=== PATIENT | female | born 1935 | race Two or more races ===

== ENCOUNTER 2017-10-12 23:43 | Emergency (ER) | payer OTHER, MEDICAID ==
[~2017-10-12] VITALS: Ht 162.6 cm; Wt 57.2 kg
[~2017-10-12 23:43] MED LIST: APIX2.5T PO; ATOR40TA52 PO; CAR3125T PO; ENA2.5T PO; MET50T PO; MIRT1TAB PO; OME20T PO
[2017-10-13 00:29] LABS: Basophils # (auto) 0.1 uL; Basophils % (auto) 0.7 % (0.0-2.0); Eosinophils # (auto) 0.2 uL; Eosinophils % (auto) 1.7 % (0.0-7.0); Hematocrit 42.2 % (36.0-46.0); Hemoglobin 13.7 g/dL (12.2-16.2); Lymphocytes # (auto) 2.7 uL; Lymphocytes % (auto) 20.9 % (10.0-50.0); Mean Corpuscular Hemoglobin 29.1 pg (28.0-32.0); Mean Corpuscular Hgb Conc. 32.6 g/dL (32.0-36.0); Mean Corpuscular Volume 89.1 fL (80.0-100.0); Monocytes # (auto) 0.6 uL; Monocytes % (auto) 4.4 % (0.0-12.0); Neutrophils # (auto) 9.2 uL; Neutrophils % (auto) 72.3 % (37.0-80.0); Platelet Count (auto) 270 10^3/uL (140-450); Red Blood Cells 4.73 10^6/uL (4.0-5.20); Red Cell Distribution Width 15.4 % (11.8-14.3); White Blood Cell 12.8 10^3/uL (4.4-10.8)
[2017-10-13 00:46] LABS: Albumin 3.8 g/dL (3.4-5.0); BUN/Creatinine Ratio 17.4; Calcium 8.6 mg/dL (8.5-10.1); Magnesium 2.3 mg/dL (1.6-2.6); Potassium 3.1 mmol/L (3.5-5.1)
[2017-10-13 00:51] LABS: Bilirubin, Total 0.7 mg/dL (0.2-1.0); Total Protein 7.8 g/dL (6.4-8.2)
[2017-10-13] MEDS ORDERED: ONDANSETRON HCL 4 MG/2 ML VIAL IV ONE (02:45)
[2017-10-13] MEDS ORDERED: SODIUM CHLORIDE 0.9% 1,000 ML IV ONE ×2 (02:45)
[2017-10-13] MEDS ORDERED: MORPHINE SULFATE 4 MG/ML SYR/VIAL IV ONE (02:45)
[2017-10-13] MEDS ORDERED: metroNIDAZOLE 500MG/100ML 100 ML IV ONE (02:45)
[2017-10-13] MEDS ORDERED: cefTRIAXone 1GM/10ml IVPUSH 10 ML IV ONE (02:45)
[2017-10-13] MEDS ORDERED: HEPARIN DRIP/D5W 100UNITS/ML 250 ML IV SCH ×2 (02:51)
[2017-10-13] MEDS ORDERED: HEPARIN SODIUM (PORCINE) 5000 UNITS/ML 1ML VIAL IV ONE (03:00)
[2017-10-13 03:27] LABS: Basophils # (auto) 0.1 uL; Basophils % (auto) 0.8 % (0.0-2.0); Eosinophils # (auto) 0 uL; Eosinophils % (auto) 0.2 % (0.0-7.0); Hematocrit 42.5 % (36.0-46.0); Lymphocytes # (auto) 1.4 uL; Lymphocytes % (auto) 10.6 % (10.0-50.0); Mean Corpuscular Hemoglobin 29.5 pg (28.0-32.0); Mean Corpuscular Hgb Conc. 32.9 g/dL (32.0-36.0); Mean Corpuscular Volume 89.6 fL (80.0-100.0); Monocytes # (auto) 0.4 uL; Neutrophils # (auto) 11.7 uL; Neutrophils % (auto) 85.4 % (37.0-80.0); Platelet Count (auto) 290 10^3/uL (140-450); Red Blood Cells 4.75 10^6/uL (4.0-5.20); Red Cell Distribution Width 15.6 % (11.8-14.3); White Blood Cell 13.6 10^3/uL (4.4-10.8)
[2017-10-13 03:41] LABS: Partial Thromboplastin Time 25.9 sec (23.78-33.04); Prothrombin Time 10.7 sec (9.27-12.13)
[2017-10-13 04:11] VITALS: BP 163/120
[2017-10-13] MEDS ORDERED: ENOXAPARIN SOD 60 MG/0.6 ML SYRINGE SC ONE (04:15)
== END 2017-10-13 04:34 | disposition short-term general hospital (02) ==
LOC: ER 23:43
DX: K63.89 Other specified diseases of intestine (principal); K55.9 Vascular disorder of intestine, unspecified; K80.20 Calculus of gallbladder without cholecystitis without obstruction; K81.9 Cholecystitis, unspecified; D72.829 Elevated white blood cell count, unspecified; I48.91 Unspecified atrial fibrillation; I11.0 Hypertensive heart disease with heart failure; I50.9 Heart failure, unspecified; I25.810 Atherosclerosis of coronary artery bypass graft(s) without angina pectoris; E11.9 Type 2 diabetes mellitus without complications; K21.9 Gastro-esophageal reflux disease without esophagitis; E78.5 Hyperlipidemia, unspecified; Z79.899 Other long term (current) drug therapy; Z95.1 Presence of aortocoronary bypass graft
CPT/HCPCS: 36415; 74176; 80053; 82150; 83690; 83735; 84484; 85025; 85610; 85730; 93005; 96365; 96375; 99285; J0696; J2270; J2405; J3490

== ENCOUNTER 2017-11-16 17:00 | Inpatient (IN) | payer OTHER, MEDICAID ==
[~2017-11-16] VITALS: Ht 157.5 cm; Wt 57.7 kg
[2017-11-16 18:48] LABS: Basophils # (auto) 0.1 uL; Basophils % (auto) 1.1 % (0.0-2.0); Eosinophils # (auto) 0.3 uL; Eosinophils % (auto) 2.7 % (0.0-7.0); Hematocrit 37.3 % (36.0-46.0); Hemoglobin 12.3 g/dL (12.2-16.2); Lymphocytes % (auto) 19.1 % (10.0-50.0); Mean Corpuscular Hemoglobin 29.2 pg (28.0-32.0); Mean Corpuscular Hgb Conc. 33.1 g/dL (32.0-36.0); Mean Corpuscular Volume 88.2 fL (80.0-100.0); Monocytes # (auto) 0.6 uL; Monocytes % (auto) 5.4 % (0.0-12.0); Neutrophils # (auto) 7.5 uL; Neutrophils % (auto) 71.7 % (37.0-80.0); Nucleated Red Blood Cells % 0.1 %; Platelet Count (auto) 291 10^3/uL (140-450); Red Blood Cells 4.23 10^6/uL (4.0-5.20); White Blood Cell 10.5 10^3/uL (4.4-10.8)
[2017-11-16 18:53] LABS: INR 1.06 (0.9-1.15); Partial Thromboplastin Time 25.8 sec (23.78-33.04); Prothrombin Time 11.3 sec (9.27-12.13)
[2017-11-16 18:59] LABS: BUN/Creatinine Ratio 19.8; Calcium 8.6 mg/dL (8.5-10.1); Magnesium 1.5 mg/dL (1.6-2.6); Potassium 4.3 mmol/L (3.5-5.1)
[2017-11-16 19:04] LABS: Bilirubin, Total 0.7 mg/dL (0.2-1.0)
[2017-11-16] MEDS ORDERED: metroNIDAZOLE 500MG/100ML 100 ML IV ONE (21:15)
[2017-11-16] MEDS ORDERED: cefTRIAXone 1GM/10ml IVPUSH 10 ML IV ONE (21:15)
[2017-11-16 23:05] LABS: Urine Bacteria FEW /hpf (None Seen); Urine Blood Negative /uL (Negative); Urine Hyaline Cast FEW /lpf (0 - 2); Urine Specific Gravity 1.009 (1.001-1.035); Urine WBC 2 /hpf (0 - 5)
[2017-11-17] VITALS (7 sets, daily range): BP systolic 103–144; BP diastolic 61–84
[2017-11-17] MEDS ORDERED: TEMAZEPAM 15 MG CAP PO PRN (00:30)
[2017-11-17] MEDS ORDERED: DEXTROSE (50%) 50ML SYRG IV PRN (00:30)
[2017-11-17] MEDS ORDERED: NITROGLYCERIN 0.4 MG SL TAB SL PRN (00:30)
[2017-11-17] MEDS ORDERED: ONDANSETRON HCL 4 MG/2 ML VIAL IV PRN (00:30)
[2017-11-17] MEDS ORDERED: HYDROcodone-ACET 5/325MG TAB PO PRN (00:30)
[2017-11-17] MEDS ORDERED: MORPHINE SULF INJ 2 MG/ML SYRINGE 1ML IV PRN ×2 (00:30)
[2017-11-17] MEDS ORDERED: ACETAMINOPHEN 325 MG TAB PO PRN (00:30)
[2017-11-17] MEDS ORDERED: METOPROLOL TARTRATE 50 MG TAB PO ONE (00:30)
[2017-11-17] MEDS ORDERED: LORazepam 0.5 MG TAB PO PRN (01:00)
[2017-11-17] MEDS ORDERED: LORazepam 0.5 MG TAB PO ONE (01:00)
[2017-11-17] MEDS: InsuLIN REG 1unit/0.01ml Soln (100units/ml) SC SCH ×3 (06:00→17:08)
[2017-11-17] MEDS: ACCU-CHEK COMFORT CURVE STRIP VI SCH ×3 (06:25→17:08)
[2017-11-17 08:04] LABS: Albumin 2.8 g/dL (3.4-5.0); Calcium 8.6 mg/dL (8.5-10.1); Magnesium 1.7 mg/dL (1.6-2.6); Potassium 3.4 mmol/L (3.5-5.1)
[2017-11-17 08:13] LABS: BUN/Creatinine Ratio 19.4; Bilirubin, Total 0.5 mg/dL (0.2-1.0); Total Protein 6.5 g/dL (6.4-8.2)
[2017-11-17] MEDS ORDERED: CARVEDILOL 3.125 MG TAB PO SCH (10:00)
[2017-11-17] MEDS ORDERED: ASPirin 81 mg TAB PO SCH (10:00)
[2017-11-17] MEDS: ENALAPRIL MALEATE 2.5 MG TAB PO SCH ×2 (10:00→22:00)
[2017-11-17] MEDS: METOPROLOL TARTRATE 50 MG TAB PO SCH ×2 (10:00→22:49)
[2017-11-17] MEDS: APIXABAN 5 MG TAB PO SCH ×2 (10:38→22:42)
[2017-11-17] MEDS: FAMOTIDINE 20 MG TAB PO SCH ×2 (10:38→22:49)
[2017-11-17] MEDS ORDERED: MAGNESIUM SULFATE 1GM/100ML 100 ML IV ONE (14:30)
[2017-11-17] MEDS ORDERED: POTASSIUM CHL 20 Meq TABLET PO ONE (14:30)
[2017-11-17] MEDS ORDERED: DONEPEZIL HYDROCHLORIDE 5 MG TAB PO SCH (22:00)
[2017-11-17] MEDS ORDERED: ATORVASTATIN 20 MG TAB PO SCH (22:00)
[2017-11-18] MEDS: ACCU-CHEK COMFORT CURVE STRIP VI SCH ×3 (00:12→11:56)
[2017-11-18] MEDS: InsuLIN REG 1unit/0.01ml Soln (100units/ml) SC SCH ×3 (05:42→11:56)
[2017-11-18 06:03] VITALS: BP 129/56
[2017-11-18 07:35] LABS: Basophils # (auto) 0.1 uL; Basophils % (auto) 1.1 % (0.0-2.0); Eosinophils # (auto) 0.4 uL; Eosinophils % (auto) 5.3 % (0.0-7.0); Hematocrit 36.6 % (36.0-46.0); Hemoglobin 12.3 g/dL (12.2-16.2); Lymphocytes # (auto) 1.7 uL; Lymphocytes % (auto) 20.5 % (10.0-50.0); Mean Corpuscular Hemoglobin 29.4 pg (28.0-32.0); Mean Corpuscular Hgb Conc. 33.5 g/dL (32.0-36.0); Mean Corpuscular Volume 87.7 fL (80.0-100.0); Monocytes # (auto) 0.5 uL; Monocytes % (auto) 5.6 % (0.0-12.0); Neutrophils # (auto) 5.5 uL; Neutrophils % (auto) 67.5 % (37.0-80.0); Platelet Count (auto) 264 10^3/uL (140-450); Red Blood Cells 4.17 10^6/uL (4.0-5.20); Red Cell Distribution Width 16.3 % (11.8-14.3); White Blood Cell 8.1 10^3/uL (4.4-10.8)
[2017-11-18 07:46] LABS: Albumin 2.6 g/dL (3.4-5.0); BUN/Creatinine Ratio 26.7; Calcium 8.1 mg/dL (8.5-10.1)
[2017-11-18 07:51] LABS: Bilirubin, Total 0.5 mg/dL (0.2-1.0); Total Protein 6.1 g/dL (6.4-8.2)
[2017-11-18 09:38] VITALS: BP 123/76
[2017-11-18] MEDS: ENALAPRIL MALEATE 2.5 MG TAB PO SCH (09:44)
[2017-11-18] MEDS: APIXABAN 5 MG TAB PO SCH (09:45)
[2017-11-18] MEDS: FAMOTIDINE 20 MG TAB PO SCH (09:45)
[2017-11-18] MEDS: METOPROLOL TARTRATE 50 MG TAB PO SCH (09:46)
[2017-11-18] MEDS ORDERED: DONE5TAB78 PO (12:44)
[2017-11-18 13:32] VITALS: BP 110/80
== END 2017-11-18 15:40 | disposition home or self-care (01) | DRG 393 ==
LOC: ER 17:12 → TELE 17:13 → TELE-EAST 11-17 02:35
PROVIDERS: ADMIT Nurse Practitioner; ATTEND Nurse Practitioner
DX: K55.9 Vascular disorder of intestine, unspecified (principal); I21.A1 Myocardial infarction type 2; I13.0 Hypertensive heart and chronic kidney disease with heart failure and stage 1 through stage 4 chronic kidney disease, or unspecified chronic kidney disease; I50.42 Chronic combined systolic (congestive) and diastolic (congestive) heart failure; K80.12 Calculus of gallbladder with acute and chronic cholecystitis without obstruction; D68.69 Other thrombophilia; E11.22 Type 2 diabetes mellitus with diabetic chronic kidney disease; E11.65 Type 2 diabetes mellitus with hyperglycemia; E78.5 Hyperlipidemia, unspecified; F03.90 Unspecified dementia, unspecified severity, without behavioral disturbance, psychotic disturbance, mood disturbance, and anxiety; I08.3 Combined rheumatic disorders of mitral, aortic and tricuspid valves; I25.10 Atherosclerotic heart disease of native coronary artery without angina pectoris; Z95.1 Presence of aortocoronary bypass graft; I25.2 Old myocardial infarction; I25.5 Ischemic cardiomyopathy; I48.91 Unspecified atrial fibrillation; K21.9 Gastro-esophageal reflux disease without esophagitis; M46.04 Spinal enthesopathy, thoracic region; M48.061 Spinal stenosis, lumbar region without neurogenic claudication; N18.9 Chronic kidney disease, unspecified; Z66 Do not resuscitate; Z82.49 Family history of ischemic heart disease and other diseases of the circulatory system; Z83.3 Family history of diabetes mellitus; Z79.4 Long term (current) use of insulin; Z79.899 Other long term (current) drug therapy; Z79.82 Long term (current) use of aspirin
CPT/HCPCS: 36415; 71046; 74176; 76705; 80053; 80061; 81001; 82150; 82962; 83036; 83690; 83735; 83880; 84443; 84484; 85025; 85610; 85730; 87081; 93005; 94761; 96361; 96365; 96375; J0696; J1815; J3490

== ENCOUNTER 2017-11-19 18:26 | Inpatient (IN) | payer OTHER, MEDICAID ==
[~2017-11-19] VITALS: Ht 162.6 cm; Wt 51.9 kg
[~2017-11-19 18:26] MED LIST changes: +DONE5TAB78 PO
[2017-11-19] MEDS ORDERED: HYDROmorphone HCL 2 MG/ML VL IV ONE (20:00)
[2017-11-19] MEDS ORDERED: ONDANSETRON HCL 4 MG/2 ML VIAL IV ONE (20:00)
[2017-11-19 20:49] LABS: Basophils # (auto) 0.1 uL; Eosinophils # (auto) 0.2 uL; Hematocrit 34.4 % (36.0-46.0); Hemoglobin 11.5 g/dL (12.2-16.2); Lymphocytes # (auto) 1.7 uL; Lymphocytes % (auto) 24.6 % (10.0-50.0); Mean Corpuscular Hemoglobin 29.3 pg (28.0-32.0); Mean Corpuscular Hgb Conc. 33.4 g/dL (32.0-36.0); Mean Corpuscular Volume 87.6 fL (80.0-100.0); Monocytes # (auto) 0.5 uL; Monocytes % (auto) 6.7 % (0.0-12.0); Neutrophils # (auto) 4.5 uL; Neutrophils % (auto) 64.7 % (37.0-80.0); Platelet Count (auto) 283 10^3/uL (140-450); Red Blood Cells 3.93 10^6/uL (4.0-5.20); Red Cell Distribution Width 15.7 % (11.8-14.3)
[2017-11-19 20:56] LABS: INR 1.04 (0.9-1.15); Prothrombin Time 11.1 sec (9.27-12.13)
[2017-11-19 21:01] LABS: Albumin 2.7 g/dL (3.4-5.0); BUN/Creatinine Ratio 22.9; Calcium 8.1 mg/dL (8.5-10.1); Magnesium 2.2 mg/dL (1.6-2.6); Potassium 3.4 mmol/L (3.5-5.1)
[2017-11-19 21:07] LABS: Bilirubin, Total 0.6 mg/dL (0.2-1.0); Total Protein 6.2 g/dL (6.4-8.2)
[2017-11-20] MEDS ORDERED: MORPHINE SULF INJ 2 MG/ML SYRINGE 1ML IV PRN (02:00)
[2017-11-20] MEDS ORDERED: ONDANSETRON HCL 4 MG/2 ML VIAL IV PRN (02:00)
[2017-11-20] MEDS ORDERED: ACETAMINOPHEN 500 MG TAB PO PRN (02:00)
[2017-11-20] MEDS: PANTOPRAZOLE 40 MG TAB PO SCH (07:32)
[2017-11-20 08:37] VITALS: BP 166/88
[2017-11-20 08:41] VITALS: BP 165/109
[2017-11-20] MEDS: BENAZEPRIL HCL 10 MG TAB PO SCH (09:36)
[2017-11-20] MEDS: METOPROLOL TARTRATE 50 MG TAB PO SCH ×2 (09:37→21:50)
[2017-11-20] MEDS ORDERED: BEN10T PO (09:47)
[2017-11-20 12:43] VITALS: BP 134/61
[2017-11-20 16:37] VITALS: BP 119/67
[2017-11-20 22:00] VITALS: BP 96/48
[2017-11-20] MEDS ORDERED: DONEPEZIL HYDROCHLORIDE 5 MG TAB PO SCH (22:00)
[2017-11-20] MEDS ORDERED: ATORVASTATIN 20 MG TAB PO SCH (22:00)
[2017-11-20] MEDS ORDERED: MIRTAZAPINE 30 MG TAB PO SCH (22:00)
[2017-11-21] MEDS: PANTOPRAZOLE 40 MG TAB PO SCH (06:44)
[2017-11-21] MEDS: HYDROmorphone HCL 2 MG/ML VL IV PRN ×3 (08:00→13:20)
[2017-11-21 09:00] VITALS: BP 138/74
[2017-11-21] MEDS: METOPROLOL TARTRATE 50 MG TAB PO SCH (10:37)
[2017-11-21] MEDS: BENAZEPRIL HCL 10 MG TAB PO SCH (10:37)
[2017-11-21 13:00] VITALS: BP 155/74
[2017-11-21 14:18] VITALS: BP 138/74
== END 2017-11-21 16:00 | disposition hospice, home (50) | DRG 394 ==
LOC: EDBD 18:26 → EDUNIT# 18:26 → ER 18:26 → OVERFLOW 18:27 → WEST WING 11-20 08:10
PROVIDERS: ADMIT Nurse Practitioner Family; ATTEND Internal Medicine Pulmonary Disease
DX: K55.1 Chronic vascular disorders of intestine (principal); I13.0 Hypertensive heart and chronic kidney disease with heart failure and stage 1 through stage 4 chronic kidney disease, or unspecified chronic kidney disease; I48.91 Unspecified atrial fibrillation; I50.9 Heart failure, unspecified; K21.9 Gastro-esophageal reflux disease without esophagitis; N18.9 Chronic kidney disease, unspecified; Z66 Do not resuscitate; D64.9 Anemia, unspecified; E11.22 Type 2 diabetes mellitus with diabetic chronic kidney disease; E78.5 Hyperlipidemia, unspecified; R74.8 Abnormal levels of other serum enzymes; F03.90 Unspecified dementia, unspecified severity, without behavioral disturbance, psychotic disturbance, mood disturbance, and anxiety; E87.6 Hypokalemia; I25.10 Atherosclerotic heart disease of native coronary artery without angina pectoris; I25.2 Old myocardial infarction; Z79.01 Long term (current) use of anticoagulants; Z82.49 Family history of ischemic heart disease and other diseases of the circulatory system; Z95.1 Presence of aortocoronary bypass graft; Z79.899 Other long term (current) drug therapy; Z83.3 Family history of diabetes mellitus
CPT/HCPCS: 36415; 71045; 80053; 82150; 83690; 83735; 84484; 85025; 85610; 85730; 87081; 93005; 96374; 96375; J2405